=== PATIENT | female | born 1950 | race Caucasian/White ===

== ENCOUNTER 2017-11-23 12:30 | Inpatient (IN) | payer MEDICARE, OTHER ==
[~2017-11-23] VITALS: Ht 170.2 cm; Wt 76.7 kg
[2017-12-14] MEDS ORDERED: COLE625 PO (08:45)
[2017-12-14] MEDS ORDERED: MAXZTAB PO (08:45)
[2017-12-14] MEDS ORDERED: MAGNCAP2 PO (08:48)
[2017-12-14] MEDS ORDERED: CALC250T PO (08:48)
[2017-12-14] MEDS ORDERED: CODCAP4 PO (08:48)
[2017-12-14] MEDS ORDERED: ASCO500C PO (08:48)
[2017-12-14] MEDS ORDERED: ZINC30TA PO (08:48)
[2017-12-14] MEDS ORDERED: FISHCAP4 PO (08:48)
[2017-12-14] MEDS ORDERED: TRAM50TA PO (08:48)
[2017-12-14] MEDS ORDERED: D 50CAP2 PO (08:48)
[2017-12-14] MEDS ORDERED: BIOT50006 PO (08:48)
[2017-12-14] MEDS ORDERED: CRANCAP2 PO (08:48)
[2017-12-14] MEDS ORDERED: OCUVTAB4 PO (08:48)
[2017-12-14] MEDS ORDERED: ASPI81TA23 PO (09:02)
[2017-12-14] MEDS ORDERED: FERR325T18 PO (09:02)
[2017-12-21] MEDS ORDERED: DEXAMETHASONE SOD PHOS 4 MG/ML VIAL IV ONE (12:00)
[2017-12-21] MEDS ORDERED: PROPOFOL 200 MG/20 ML AMP IV ONE (12:00)
[2017-12-21] MEDS ORDERED: LIDOCAINE HCL 1% PF 5 ML SYRINGE OTHER ONE (12:00)
[2017-12-21] MEDS ORDERED: ceFAZolin INJ 1,000 MG VIAL IV ONE (12:00)
[2017-12-21] MEDS ORDERED: ONDANSETRON HCL 4 MG/2 ML VIAL IV ONE (12:00)
[2017-12-21] MEDS ORDERED: ROPIVACAINE 0.5% PF INJ 30 ML VIAL ONE (12:08)
[2017-12-21] MEDS ORDERED: MIDAZOLAM HCL 2 MG/2 ML VIAL ONE (12:08)
[2017-12-21] MEDS ORDERED: METOPROLOL TARTRATE 25 MG TAB PO PRN (12:15)
[2017-12-21] MEDS ORDERED: CHLORHEXIDINE GLUCONATE 2 % 1 PACK (2 CLOTHS) TOPICAL PRN (12:15)
[2017-12-21] MEDS ORDERED: CHLORHEXIDINE GLUCONATE 4% SOLN 120 ML BTL TOPICAL SCH (12:15)
[2017-12-21] MEDS ORDERED: VANCOMYCIN 1000 MG/NS 250 ML (for <70 kg) IV SCH ×2 (12:15)
[2017-12-21] MEDS ORDERED: SODIUM CHLORID 0.9% 500 ML IV PRN (12:15)
[2017-12-21] MEDS ORDERED: LACTATED RINGER'S 1000 ML IV PRN (12:15)
[2017-12-21] MEDS ORDERED: POVIDONE IODINE 5% (ANTISEPSIS KIT) 4 APPLICATIONS EACH NARE PRN (12:15)
[2017-12-21] MEDS ORDERED: CEFAZOLIN INJ 2,000 MG in SODIUM CHLORIDE 0.9% INJ 100 ML IV SCH (12:15)
[2017-12-21] MEDS ORDERED: VANCOMYCIN 1 GM/200 ML PREMIX IV SCH ×2 (12:30)
[2017-12-21] MEDS ORDERED: ACETAMINOPHEN 1000 MG/100 ML 100 ML IV ONE (12:36)
[2017-12-21] MEDS ORDERED: ceFAZolin INJ 1,000 MG VIAL ONE (12:38)
[2017-12-21] MEDS ORDERED: GENTAMICIN SULFATE 80 MG/2 ML VIAL IRRIGATION ONE (13:48)
[2017-12-21] MEDS ORDERED: ROPIVACAINE PERI-ARTICULAR INJECTION. P-ARTICULR SCH ×5 (14:30)
[2017-12-21] MEDS ORDERED: Post-op Orders (for Pharmacy) XX ONE (15:30)
[2017-12-21] MEDS ORDERED: WALKER WHEELS/F1 MIS (15:37)
[2017-12-21] MEDS ORDERED: CPMMACHINE (15:38)
--- NOTE | 2017-12-21 15:38 | HHI.FF ---
Face to Face Verification Diagnosis: (1) Osteoarthritis of left knee Physical Therapy Gait training, Transfer training, bed to chair Knee: Total knee, Protocol: Left, Full weight bearing Right LE Weight Bearing: WB as tolerated Left LE Weight Bearing: WB as tolerated Nursing RN: 3 days/week x 2 weeks Nursing: Dressing changes (clean incision with alcohol and apply dry, sterile dressing ) Additional Instructions Aspirin 81 mg bid x 4 weeks DVT prop I have seen patient Lorena Ng on 12/21/17. My clinical findings support the need for the requested home health care services because: High risk of falls I certify that my clinical findings support that this patient is homebound because: Post-op weakness Haseeb Patel MD Dec 21, 2017 15:38
--- NOTE | 2017-12-21 15:44 | HHI.PR ---
Immediate Post Op Note Procedure Date: Dec 21, 2017 Pre Op Diagnosis: L Knee OA Post Op Diagnosis: Same Surgeon: Haseeb Patel MD Office Professional(s): Chelsea Marte PA-C Procedure: L TKR Complications: None Specimen(s) removed: None Estimated blood loss: 25cc Anesthesia: General, Regional Block, Local Drains: Hemovac Patient to: PACU Patient Condition: Good Implant/Devices: SEE IMPLANT LOG (if applicable) Date/Time of Procedure: SEE SURGICAL CARE RECORD Haseeb Patel MD Dec 21, 2017 15:44
[2017-12-21] MEDS ORDERED: ALUMINUM/MAGNESIUM/SIMETH 30 ML CUP PO PRN (16:00)
[2017-12-21] MEDS ORDERED: ZOLPIDEM TARTRATE 5 MG TAB PO PRN (16:00)
[2017-12-21] MEDS ORDERED: CEFAZOLIN INJ 2,000 MG in SODIUM CHLORIDE 0.9% INJ 100 ML IV PRN (16:00)
[2017-12-21] MEDS ORDERED: ONDANSETRON HCL 4 MG/2 ML VIAL IVP PRN (16:00)
[2017-12-21] MEDS: LACTATED RINGER'S 1000 ML INJ 1,000 ML IV SCH (16:00)
[2017-12-21] MEDS ORDERED: HYDROmorphone HCL 2 MG TAB PO PRN (16:00)
[2017-12-21] MEDS ORDERED: DO NOT ADM ANY ANTICOAGULANT DRUGS PRN (16:15)
--- NOTE | 2017-12-21 16:25 | RADRPT ---
EXAM DATE/TIME: 12/21/2017 15:38 [facility] COMPARISON: No previous studies available for comparison. INDICATIONS : Post operative left knee. MEDICAL HISTORY : None. SURGICAL HISTORY : None. ENCOUNTER: Initial ACUITY: 1 day PAIN SCORE: Non-responsive. LOCATION: Left knee. FINDINGS: Total knee arthroplasty with anatomic alignment of the osseous structures. The hardware appears inta ct. Multiple skin simran, soft tissue gas, and 2 catheter drains in the suprapatellar region. CONCLUSION: Expected postsurgical findings status post total knee arthroplasty. Sterling Elliott MD on December 21, 2017 at 16:22 Board Certified Radiologist. This report was verified electronically.
[2017-12-21 18:24] VITALS: BP 101/53; PULSE 83; RESP 17; TEMP 97.3; O2SAT 95
[2017-12-21] MEDS: ASPIRIN EC 81 MG TABEC PO SCH (19:30)
[2017-12-21 20:00] VITALS: BP 107/55; PULSE 83; RESP 18; TEMP 97.8; O2SAT 97
[2017-12-22] VITALS: BP 99/57; PULSE 69; RESP 18; TEMP 97.7; O2SAT 94
[2017-12-22 04:00] VITALS: BP 103/58; PULSE 67; RESP 18; TEMP 97.4; O2SAT 94
[2017-12-22] MEDS: LACTATED RINGER'S 1000 ML INJ 1,000 ML IV SCH (04:30)
[2017-12-22 05:48] VITALS: O2SAT 97
--- NOTE | 2017-12-22 07:20 | PD.ORT.PN ---
Subjective Subjective Remarks POD#1 L TKR No sob;no chest pain Explained to patient/ operative findings;answered multiple questions Objective Vitals Vital Signs Date Time Temp Pulse Resp B/P (MAP) Pulse Ox O2 Delivery O2 Flow Rate FiO2 12/22/17 05:48 97 12/22/17 00:00 97.7 69 18 99/57 (71) 94 12/21/17 20:00 97.8 83 18 107/55 (72) 97 12/21/17 18:24 97.3 83 17 101/53 (69) 95 12/21/17 17:30 83 14 105/57 (73) 94 Room Air 12/21/17 16:30 97.4 78 12 111/56 (74) 95 Nasal Cannula 2 12/21/17 16:15 77 14 122/63 (82) 96 Nasal Cannula 2 12/21/17 16:00 76 15 120/57 (78) 96 Nasal Cannula 2 12/21/17 15:45 78 16 127/60 (82) 96 Nasal Cannula 2 12/21/17 15:30 86 15 131/65 (87) 97 Nasal Cannula 2 12/21/17 15:27 97.5 89 14 129/61 (83) 96 Nasal Cannula 3 12/21/17 12:40 97 Nasal Cannula 12/21/17 12:25 98.1 83 18 133/80 (97) 94 I/O 12/21/17 12/21/17 12/21/17 12/22/17 12/22/17 12/22/17 07:00 15:00 23:00 07:00 15:00 23:00 Intake Total 1350 ml 100 ml Output Total 380 ml 75 ml Balance 970 ml 25 ml Intake IV Total 300 ml 100 ml Autotransfusion 250 ml Other 800 ml Output Urine Total 100 ml Drainage Total 255 ml 75 ml Estimated Blood Loss 25 ml # Voids 2 Imaging Last 24 hours Impressions Knee X-Ray 12/21/17 1524 Signed Impressions: Service Date/Time: Thursday, December 21, 2017 15:38 - CONCLUSION: Expected postsurgical findings status post total knee arthroplasty. Sterling Elliott MD Objective Remarks N/V intact Negative kat's,no calf tenderness wound healing well Assessment & Plan Assessment and Plan Ortho stable D/C home today;[facility] RN/PT Aspirin EC 81mg BID x 4 weeks,TEDS for DVT/PE prophlaxsis Haseeb Patel MD Dec 22, 2017 07:20
[2017-12-22 07:33] VITALS: BP 114/58; PULSE 63; RESP 18; TEMP 98.2; O2SAT 95
[2017-12-22] MEDS: ASPIRIN EC 81 MG TABEC PO SCH (07:52)
[2017-12-22] MEDS: HYDROmorphone HCL 2 MG TAB PO PRN ×2 (07:52→12:54)
[2017-12-22] MEDS ORDERED: MORPHINE SULFATE 8 MG/ML INJ IV PUSH PRN (08:00)
[2017-12-22 08:19] LABS: HEMATOCRIT 32.7 % (35.0-46.0); HEMOGLOBIN 11.1 GM/DL (11.6-15.3)
[2017-12-22] MEDS ORDERED: TRIAMTERENE/HCTZ 37.5 MG/25 MG TAB PO SCH (09:00)
[2017-12-22] MEDS ORDERED: FERROUS SULFATE 325 MG (65 MG ELEMENTAL IRON) TAB PO SCH (09:00)
--- NOTE | 2017-12-22 09:45 | MP ---
cc: Haseeb Patel MD, Elizabeth Long, John DATE OF OPERATION: 12/21/2017 PREOPERATIVE DIAGNOSIS: Left knee severe tricompartmental osteoarthritis. POSTOPERATIVE DIAGNOSIS: Left knee severe tricompartmental osteoarthritis, psoriatic arthritis. PROCEDURE PERFORMED: Left total knee arthroplasty - cemented [employer]. SURGEON: Haseeb Patel MD DIRECTOR OF DIGITAL TECHNOLOGY: Chelsea Mrate PA-C TOURNIQUET TIME: 67 minutes at 250 mmHg. ESTIMATED BLOOD LOSS: ANESTHESIA: General, adductor canal regional block, intra-articular block. COMPLICATION: None. PLAN OF ACTIVITIES: Per orders. PROCEDURE: My medical claims assistant, ORIN Camacho, was present for the entire surgical case. She was medically necessary for the entire case because of the complexity of the case and to facilitate the performance of the procedure. The UNIFIED COMMUNICATIONS ARCHITECT was at the back table and was not of skill-set for this case to manipulate the instruments, e.g., the multiple different types of soft tissue retractors, trial implants and permanent implants including bone cement. PROCEDURE DETAILS: The patient was brought in the operating room and had satisfactory anesthesia by department of anesthesia. The left lower extremity was prepped and draped in the usual manner. The extremity was exsanguinated by elevation and tourniquet inflated to 250 mmHg. Anterior exposure of the knee was made. Paramedian capsulotomy was performed. The patient was found to have a significant degree of synovitis associated with her psoriatic arthritis with tricompartment osteoarthritis involving the knee. The remaining portion of the medial and lateral meniscus were removed. The anterior cruciate ligament was removed. The posterior cruciate ligament was preserved. Prepatellar fat pad was surgically excised. Using the [employer] Vangu[employer] total knee arthroplasty system, IM guide was used at the distal femur to accept a 67.5 mm femoral component, which was cut in 5 degree valgus cut. Extramedullary guide was used for the proximal tibia to accept a 75 mm tibial component. A 10 mm insert after appropriate balancing was inserted. The patient found to have satisfactory balance in both flexion and extension. Undersurface patellar was removed to accept a 31 mm 3-prong patella prosthesis. The knee was found to have a satisfactory range of motion and satisfactory balance in both flexion and extension. All trial components were removed. Preparation for cementing was made. Two packages of [place] bone cement from [employer] was used. First, the tibial component was cemented, which was a 75 mm tibial component, followed by the femoral component, which was the 67.5 mm femoral component, and a 9 insert. The patella was resurfaced using a 31 mm, 3-prong patella prosthesis. Bone cement was allowed to harden for 11 minutes. All excess bone cement was removed. Then, a 10 "lipped" x 75 mm polyethylene plastic was placed onto the tibial tray with appropriate clipping mechanism. The knee was irrigated with 4000 mL of sterile solution and wound suctioned dry. The knee was also injected with 100 mL of local anesthesia provided by the department of anesthesia. The wound was dried. Tourniquet deflated. All bleeders were coagulated. The wound was closed over 2 Hemovac drains hooked up to the [employer] system. The knee was closed in multiple layers with the capsule and extensor mechanism closed with multiple interrupted #2 Ti-Cron suture, subcuticular layers with 0 Vicryl and 2-0 Vicryl, skin was approximated with skin simran. Sterile dressings were applied. The patient tolerated the procedure well and went to recovery room in stable and satisfactory condition. MD TONYA Cedillo/DAVID , 03:38 PM , 04:05 PM [place]
[2017-12-22 11:31] VITALS: BP 114/58; PULSE 58; RESP 18; TEMP 98.7; O2SAT 96
== END 2017-12-22 14:28 | disposition home health service (06) | DRG 470 ==
LOC: HSDI 12-21 11:29 → N06A 12-21 18:07 → N06B 12-22 13:15
PROVIDERS: ADMIT Orthopaedic Surgery Orthopaedic Surgery of the Spine; ATTEND Orthopaedic Surgery Orthopaedic Surgery of the Spine
PROC: 3E0T3BZ Introduction of Anesthetic Agent into Peripheral Nerves and Plexi, Percutaneous Approach (ICD-10-PCS; 2017-12-21)
PROC: 0SRD0J9 Replacement of Left Knee Joint with Synthetic Substitute, Cemented, Open Approach (ICD-10-PCS; principal; 2017-12-21 13:08)
DX: M17.12 Unilateral primary osteoarthritis, left knee (principal); L40.50 Arthropathic psoriasis, unspecified; M81.0 Age-related osteoporosis without current pathological fracture; Z87.891 Personal history of nicotine dependence
CPT/HCPCS: 73560; 85014; 85018; 86850; 86900; 86901; 86920; 94150; C1776; J0131; J0690; J0735; J1100; J1580; J1885; J2250; J2405; J2795; J3010; J3370; J7120; L1830

== ENCOUNTER → 2017-12-14 | Outpatient (CLI) | payer MEDICARE, OTHER ==
[~2017-12-14] MED LIST: ASCO500C PO; ASPI81TA23 PO; BIOT50006 PO; CALC250T PO; CODCAP4 PO; COLE625 PO; CPMMACHINE; CRANCAP2 PO; D 50CAP2 PO; FERR325T18 PO; FISHCAP4 PO; MAGNCAP2 PO; MAXZTAB PO; OCUVTAB4 PO; TRAM50TA PO; WALKER WHEELS/F1 MIS; ZINC30TA PO
[2017-12-14 09:37] LABS: BILIRUBIN, URINE NEG (NEG); BLOOD, URINE NEG (NEG); GLUCOSE,URINE NEG (NEG); KETONE, URINE NEG (NEG); MUCUS URINE FEW /lpf (OCC); NITRITE,URINE NEG (NEG); SQUAMOUS EPITHELIAL CELL URINE <1 /hpf (0-5); URINE COLOR YELLOW (YELLW/STRAW); URINE LEUKOCYTE ESTERASE SMALL (NEG)
[2017-12-14 09:42] LABS: AUTOMATED NEUTROPHIL # 3.9 TH/MM3 (1.8-7.7); BASOPHIL # 0.1 TH/MM3 (0-0.2); BASOPHIL % 0.8 % (0.0-2.0); EOSINOPHIL # 0.3 TH/MM3 (0-0.4); EOSINOPHIL % 4.6 % (0.0-4.0); HEMOGLOBIN 15.1 GM/DL (11.6-15.3); LYMPH % 27.5 % (9.0-44.0); LYMPHOCYTE # 1.9 TH/MM3 (1.0-4.8); MEAN CELL VOLUME 86.1 FL (80.0-100.0); MEAN CORPUSCULAR HEMOGLOBIN 29.5 PG (27.0-34.0); MEAN CORPUSCULAR HGB CONC 34.2 % (32.0-36.0); MEAN PLATELET VOLUME 8.1 FL (7.0-11.0); MONO % 9.9 % (0.0-8.0); MONOCYTE # 0.7 TH/MM3 (0-0.9); NEUT % 57.2 % (16.0-70.0); PLATELET COUNT 293 TH/MM3 (150-450); RED BLOOD COUNT 5.11 MIL/MM3 (4.00-5.30); RED CELL DISTRIBUTION WIDTH 13.2 % (11.6-17.2); WHITE BLOOD COUNT 6.9 TH/MM3 (4.0-11.0)
[2017-12-14 10:16] LABS: BICARBONATE 30.9 MEQ/L (21.0-32.0); CALCIUM 9.3 MG/DL (8.5-10.1); CREATININE 0.78 MG/DL (0.50-1.00)
== END ==
LOC: CPRE 08:01
PROVIDERS: ATTEND Orthopaedic Surgery Orthopaedic Surgery of the Spine
DX: Z01.812 Encounter for preprocedural laboratory examination (principal); M17.12 Unilateral primary osteoarthritis, left knee
CPT/HCPCS: 36415; 80048; 81001; 85025